=== PATIENT | female | born 1940 | race Asian ===

== ENCOUNTER 2022-08-09 23:10 | Inpatient (IN) | payer OTHER, MEDICAID ==
[~2022-08-09] VITALS: Ht 157.5 cm; Wt 43.1 kg
[2022-08-09 23:20] VITALS: BP 127/85
[2022-08-09] MEDS ORDERED: HALOPERIDOL IM 5 MG/ML VIAL IM ONE (23:20)
[2022-08-09] MEDS ORDERED: LORazepam 2 MG/ML VIAL IM ONE (23:20)
--- NOTE | 2022-08-10 | NUR ---
PT IS SLEEPING. CHEST RISE AND FALL SYMMETRICALLY NOTED. RESPIRATION IS EVEN AND UNLABORED. ALL SAFETY MEASURES IMPLEMENTED. BED IN LOW POSITION. BED WHEELS ON LOCKED AND CALL LIGHT WITHIN REACH. Addendum: 08/11/22 at 0123 by Ariane Boateng RN WRONG TIME
[2022-08-10] MEDS ORDERED: [UNRECOGNIZED DRUG - CODE] PO (00:16)
[2022-08-10] MEDS ORDERED: ROSU20TA1 PO (00:16)
[2022-08-10] MEDS ORDERED: AMLO5TAB PO (00:16)
[2022-08-10] MEDS ORDERED: PIOG1TAB2 PO (00:16)
[2022-08-10] MEDS ORDERED: ESCI10TA PO (00:16)
[2022-08-10] MEDS ORDERED: MIRA25TE PO (00:16)
[2022-08-10] MEDS ORDERED: METF1TAB5 PO (00:16)
[2022-08-10] MEDS ORDERED: DULA0.75 SC (00:16)
--- NOTE | 2022-08-10 00:29 | NUR ---
Patient lying in bed, alert but confused, chest rise and fall symmetrical, no s/s of distress.
--- NOTE | 2022-08-10 00:43 | NUR ---
[address]
--- NOTE | 2022-08-10 01:12 | NUR ---
ASSISTED RN WITH STRAIGHT CATH.
[2022-08-10 01:13] LABS: APPEARANCE,URINE CLOUDY (CLEAR); BILIRUBIN,URINE NEGATIVE (NEGATIVE); BLOOD, URINE 3+ (NEGATIVE); COLOR,URINE YELLOW (YELLOW); LEUKOCYTE ESTERASE ,URINE 2+ (NEGATIVE); NITRITE, URINE POSITIVE (NEGATIVE); PH,URINE 6.5 (5.0-9.0); UGLUCOSE 1+ (NEGATIVE)
[2022-08-10 01:28] LABS: WBC,URINE TOO MANY TO COUNT /HPF (0-5)
[2022-08-10 01:33] LABS: BASOPHILS % (AUTO) 0.5 % (0.0-2.0); EOSINOPHILS % (AUTO) 0.9 % (0.0-4.0); HEMATOCRIT 33.8 % (36-48); HEMOGLOBIN 11.6 g/dL (12.0-16.0); LYMPHOCYTES # (AUTO) 1.3 K/uL (2.5-16.5); LYMPHOCYTES % (AUTO) 28.8 % (20.5-51.1); MEAN CORPUSCULAR HEMOGLOBIN 32 pg (27-31); MEAN CORPUSCULAR HGB CONC 34 g/dL (33-37); MEAN CORPUSCULAR VOLUME 93.5 fL (80-94); MONOCYTES # (AUTO) 0.4 K/uL (0.8-1.0); MONOCYTES % (AUTO) 9.4 % (1.7-9.3); NEUTROPHILS # (AUTO) 2.6 K/uL (1.8-7.7); NEUTROPHILS % (AUTO) 60.4 % (42.2-75.2); PLATELET COUNT (AUTO) 152 K/uL (140-450); RED BLOOD CELL COUNT(AUTO) 3.61 MIL/uL (4.20-5.40); RED CELL DISTRIBUTION WIDTH 13.4 % (11.6-13.7); WHITE BLOOD COUNT (AUTO) 4.4 K/uL (4.8-10.8)
[2022-08-10 01:49] LABS: ALBUMIN 3.7 g/dL (3.4-5.0); ANION GAP 10.6 (8-16); ASPARTATE AMINOTRANSFERASE 19 U/L (15-37); CHLORIDE 105 mmol/L (98-107); CREATININE 0.7 mg/dL (0.6-1.3); GLUCOSE 148 mg/dL (74-106); POTASSIUM 3.6 mmol/L (3.5-5.1); SODIUM SERUM 139 mmol/L (136-145); TOTAL BILIRUBIN 0.5 mg/dL (0.0-1.0); UREA NITROGEN, BLOOD 15 mg/dL (7-18)
--- NOTE | 2022-08-10 02:10 | NUR ---
Patient lying in bed, alert but confused, chest rise and fall symmetrical, no s/s of distress. Addendum: 08/10/22 at 0621 by [email or web address] Patient lying in bed, alert but confused, chest rise and fall symmetrical, no s/s of pain or s/s of distress.
[2022-08-10] MEDS ORDERED: LORazepam 2 MG/ML VIAL IVP PRN ×2 (02:25→18:50)
[2022-08-10] MEDS ORDERED: cefTRIAXone 1,000 MG VIAL ONE (02:37)
--- NOTE | 2022-08-10 04:43 | NUR ---
Patient lying in bed, alert but confused, chest rise and fall symmetrical, no s/s of distress. Addendum: 08/10/22 at 0621 by [email or web address] Patient lying in bed, alert but confused, chest rise and fall symmetrical, no s/s of pain or s/s of distress.
--- NOTE | 2022-08-10 06:20 | NUR ---
Patient lying in bed, alert but confused, chest rise and fall symmetrical, no s/s of pain or s/s of distress.
--- NOTE | 2022-08-10 07:15 | NUR ---
Change of shift report given to AM shift nurse Adze RN. AM shift nurse Adze RN verbalized understanding of report, no further questions.
--- NOTE | 2022-08-10 07:36 | NUR ---
Mary Alice crook in ED - 08/10/22 at 0737 by [email or web address] Change of shift report given to AM shift nurse Belen RN. AM shift nurse Belen RN verbalized understanding of report, no further questions.
[2022-08-10] MEDS ORDERED: ONDANSETRON 4 MG/2 ML VIAL IVP PRN (07:40)
[2022-08-10] MEDS ORDERED: ZOLPIDEM 10 MG TAB PO PRN (07:40)
[2022-08-10] MEDS ORDERED: DOCUSATE SODIUM 100 MG GELCAP PO PRN (07:40)
[2022-08-10] MEDS ORDERED: MORPHINE SULFATE 2 MG/ML SYR IVP PRN (07:40)
[2022-08-10] MEDS ORDERED: POTASSIUM CHLORIDE 10 MEQ TABER PO PRN (07:40)
[2022-08-10] MEDS ORDERED: ACETAMINOPHEN 325 MG TAB PO PRN (07:40)
[2022-08-10] MEDS ORDERED: MAG SULF 2000 MG/WATER PREMIX 50 ML IV PRN (07:40)
[2022-08-10] MEDS ORDERED: DEXTROSE 50% 50 ML SYR IVP PRN (07:45)
--- NOTE | 2022-08-10 08:15 | NUR ---
RECEIVED PT CARE AND REPORT FROM ER NURSE TAMARA. PT ACCOMPANIED BY ER NURSE TO ROOM VIA BED. PT IS RESTING WITH OU CLOSED. NO VISIBLE S/S OF DISTRESS, DISCOMFORT, PAIN OR SOB. PT PLACED IN ROOM WITHOUT INCIDENT. PT IS BENGALI SPEAKING. CALL LIGHT PLACED WITHIN REACH OF PATIENT. TELE MONITOR PLACED. ALL NEEDS MET AT THIS TIME.
--- NOTE | 2022-08-10 08:34 | NUR ---
Patient will be admitted to care of . Admited to tele. Will go to room 120 A. Belongings list completed. Report to Bre HERNANDEZ.
[2022-08-10] MEDS ORDERED: MEMANTINE 10 MG TAB PO SCH (09:00)
--- NOTE | 2022-08-10 09:48 | NUR ---
PATIENT HAS BEEN SCREENED AND CATEGORIZED MODERATE NUTRITION RISK. PATIENT WILL BE SEEN WITHIN 3-5 DAYS OF ADMISSION. REVIEWED BY EDWIN MISHRA RD Addendum: 08/10/22 at [address] PATIENT HAS BEEN RE-SCREENED AND CATEGORIZED HIGH NUTRITION RISK D/T BMI = 17.4 KG/M2. PATIENT WILL BE SEEN WITHIN 1-2 DAYS OF ADMISSION. REVIEWED BY EDWIN MISHRA RD
[2022-08-10] MEDS: amLODIPine 5 MG TAB PO SCH (09:58)
[2022-08-10] MEDS: ESCITALOPRAM 20 MG TAB PO SCH (09:59)
--- NOTE | 2022-08-10 10:47 | NUR ---
PT ADMISSION COMPLETE WITH ASSISTANCE FROM DAUGHTER IN LAW WESLEY PETER. FAMILY WAS ABLE TO ANSWER QUESTIONS AND TRANSLATE FOR PATIENT D/T LANGUAGE BARRIER. PATIENT SPEAKS THAI.
[2022-08-10 12:00] VITALS: BP 110/59
[2022-08-10] MEDS: BLOOD GLUCOSE MONITORING 1 DEV DEV FS SCH ×3 (12:02→21:15)
--- NOTE | 2022-08-10 12:53 | NUR ---
CALLED AND SPOKE WITH DR. ANDERSON FOR PATIENT'S TELE PSYCH CONSULT. GAVE REPORT ON PATIENT HISTORY, CONDITION AND REASON FOR ADMISSION. STATED HE WILL COMPLETE TELE CONSULT AT A LATER TIME TODAY.
[2022-08-10 16:00] VITALS: BP 134/75
--- NOTE | 2022-08-10 16:45 | NUR ---
08/10/22 RD INITIAL ASSESSMENT COMPLETED PLEASE REFER TO NUTRITION ASSESSMENT UNDER CARE ACTIVITY FOR ESTIMATED NUTRITIONAL NEEDS. 1. RECOMMEND ADDING CCHO 60 GM TO MECHANICAL SOFT DIET TOLERATED 2. RECOMMEND GLUCERNA 1/DAY -PROVIDES 220 KCAL AND [address] TO FOLLOW-UP 3-5 DAYS, MODERATE RISK REVIEWED BY EDWIN MISHRA RD
--- NOTE | 2022-08-10 18:31 | NUR ---
PT IS RESTING IN BED SEMI FOWLERS WITH OU CLOSED. NO VISIBLE S/S OF DISTRESS, DISCOMFORT, PAIN OR SOB. CALL LIGHT IS WITHIN REACH, ALL NEEDS MET AT THIS TIME. WILL ENDORSE TO NOC SHIFT.
--- NOTE | 2022-08-10 18:48 | NUR ---
TEXTED DR. SANCHEZ TO REQUEST MEDICATION FOR AGITATION. PT IS NOT AGITATED AT THIS MOMENT BUT HAS HISTORY OF AGITATION AND WAS GIVEN SOME IN OUR ER. FAMILY IS CONCERNED THAT PATIENT WILL HAVE ANOTHER OUTBURST AND ARE REQUESTING ROOM CHANGE AND MEDICATIONS. NO ROOMS TO CHANGE PATIENT TO AT THIS TIME.
--- NOTE | 2022-08-10 19:30 | NUR ---
RECEIVED PT FROM MORNING SHIFT NURSE. PT IS AOX1, POLISH SPEAKING AND ON BED REST. PT IS ON ROOM AIR AND ON [facility] SOFT DIET. PT HAS IV ON RIGHT AC GAUGE 20, SALINE LOCK. PT SKIN IS INTACT. PT HAS NO S/S OF RESPIRATORY DISTRESS NOTED. ALL SAFETY MEASURES IMPLEMENTED. BED IN LOW POSITION. BED WHEELS ON LOCKED AND CALL LIGHT WITHIN REACH.
[2022-08-10 20:00] VITALS: BP 123/58
[2022-08-10] MEDS: LORazepam 2 MG/ML VIAL IVP PRN (20:56)
--- NOTE | 2022-08-10 20:56 | NUR ---
SCHEDULED AND PRESCRIBED MEDICATION WAS GIVEN TO PT. ATIVAN WAS ALSO GIVEN DUE TO PT'S AGITATION. ALL SAFETY MEASURES IMPLEMENTED. BED IN LOW POSITION. BED WHEELS ON LOCKED AND CALL LIGHT WITHIN REACH.
[2022-08-10] MEDS: INSULIN LISPRO SLIDING SCALE 100 UNITS/ML VIAL SUBQ PRN (21:16)
--- NOTE | 2022-08-10 21:16 | NUR ---
PT BLOOD GLUCOSE IS 176. HUMALOG INSULIN 2 UNITS WAS GIVEN TO PT PER MD ORDER. ALL SAFETY MEASURES IMPLEMENTED. BED IN LOW POSITION. BED WHEELS ON LOCKED AND CALL LIGHT WITHIN REACH.
[2022-08-11] VITALS: BP 133/60
--- NOTE | 2022-08-11 | NUR ---
PT IS SLEEPING. CHEST RISE AND FALL SYMMETRICALLY NOTED. RESPIRATION IS EVEN AND UNLABORED. ALL SAFETY MEASURES IMPLEMENTED. BED IN LOW POSITION. BED WHEELS ON LOCKED AND CALL LIGHT WITHIN REACH.
--- NOTE | 2022-08-11 02:00 | NUR ---
CHECKED THE PT, STILL SLEEPING. CHEST RISE AND FALL SYMMETRICALLY NOTED. RESPIRATION IS EVEN AND UNLABORED. ALL SAFETY MEASURES IMPLEMENTED. BED IN LOW POSITION. BED WHEELS ON LOCKED AND CALL LIGHT WITHIN REACH.
[2022-08-11 04:00] VITALS: BP 155/69
--- NOTE | 2022-08-11 04:00 | NUR ---
MORNING CARE WAS DONE TO PT. CHANGED LINENS, CHUCKS AND GOWN. ALL SAFETY MEASURES IMPLEMENTED. BED IN LOW POSITION. BED WHEELS ON LOCKED AND CALL LIGHT WITHIN REACH.
[2022-08-11 05:43] LABS: BASOPHILS % (AUTO) 0.6 % (0.0-2.0); EOSINOPHILS # (AUTO) 0.1 K/uL (0-0.4); EOSINOPHILS % (AUTO) 1.6 % (0.0-4.0); HEMATOCRIT 34.8 % (36-48); HEMOGLOBIN 11.9 g/dL (12.0-16.0); LYMPHOCYTES # (AUTO) 1.6 K/uL (2.5-16.5); LYMPHOCYTES % (AUTO) 31.4 % (20.5-51.1); MEAN CORPUSCULAR HEMOGLOBIN 32 pg (27-31); MEAN CORPUSCULAR HGB CONC 34 g/dL (33-37); MEAN CORPUSCULAR VOLUME 93.2 fL (80-94); MONOCYTES # (AUTO) 0.5 K/uL (0.8-1.0); MONOCYTES % (AUTO) 9.6 % (1.7-9.3); NEUTROPHILS # (AUTO) 2.8 K/uL (1.8-7.7); NEUTROPHILS % (AUTO) 56.8 % (42.2-75.2); PLATELET COUNT (AUTO) 173 K/uL (140-450); RED BLOOD CELL COUNT(AUTO) 3.73 MIL/uL (4.20-5.40)
[2022-08-11 06:16] LABS: ANION GAP 11.9 (8-16); CARBON DIOXIDE 27.7 mmol/L (21-32); CHLORIDE 104 mmol/L (98-107); CREATININE 0.7 mg/dL (0.6-1.3); GLUCOSE 119 mg/dL (74-106); POTASSIUM 3.6 mmol/L (3.5-5.1); SODIUM SERUM 140 mmol/L (136-145); UREA NITROGEN, BLOOD 15 mg/dL (7-18)
[2022-08-11] MEDS: BLOOD GLUCOSE MONITORING 1 DEV DEV FS SCH ×4 (06:32→20:44)
[2022-08-11] MEDS: INSULIN LISPRO SLIDING SCALE 100 UNITS/ML VIAL SUBQ PRN ×3 (06:33→20:42)
--- NOTE | 2022-08-11 06:33 | NUR ---
PT BLOOD SUGAR IS 202. HUMALOG INSULIN 4 UNITS WAS GIVEN TO PT. ALL SAFETY MEASURES IMPLEMENTED. BED IN LOW POSITION. BED WHEELS ON LOCKED AND CALL LIGHT WITHIN REACH. Addendum: 08/11/22 at 705 by Ariane Boateng RN WRONG TIME. Addendum: 08/11/22 at 705 by Ariane Boateng RN WRONG PT
--- NOTE | 2022-08-11 06:34 | NUR ---
PT BLOOD SUGAR IS 113. NO HUMALOG INSULIN COVERAGE NEEDED. ALL SAFETY MEASURES IMPLEMENTED. BED IN LOW POSITION. BED WHEELS ON LOCKED AND CALL LIGHT WITHIN REACH.
--- NOTE | 2022-08-11 07:10 | NUR ---
PT IS STABLE. ENDORSED PT TO THE MORNING SHIFT NURSE FOR CONTINUITY OF CARE.
--- NOTE | 2022-08-11 07:30 | NUR ---
RECEIVED PT CARE AND REPORT FROM ANDREW HERNANDEZ. PT IS RESTING IN BED SEMI FOWLERS WITH OU CLOSED. NO VISIBLE S/S OF DISTRESS, DISCOMFORT, PAIN OR SOB. INFORMED BY NOC RN THAT PATIENT WAS GIVEN ATIVAN PRN FOR AGITATION AT 2055. WILL CONTINUE TO MONITOR PATIENT BEHAVIOR. CALL LIGHT IS WITHIN REACH, ALL NEEDS MET AT THIS TIME.
[2022-08-11 08:00] VITALS: BP 150/70
[2022-08-11] MEDS: ESCITALOPRAM 20 MG TAB PO SCH (10:03)
[2022-08-11] MEDS: amLODIPine 5 MG TAB PO SCH (10:04)
[2022-08-11 12:00] VITALS: BP 128/60
--- NOTE | 2022-08-11 12:45 | NUR ---
FAMILY (DANGELO) IS REQUESTING THAT NORVASC BE CHANGED TO DIFFERENT BP MEDICATION D/T PREVIOUS ADVERSE REACTION TO MEDICATION. THEY STATED THAT PATIENT EXPERIENCED BILAT LOWER EXTREMITY SWELLING. TEXTED DR. SANCHEZ TO INFORM. AWAITING ORDERS.
--- NOTE | 2022-08-11 15:06 | NUR ---
TEXTED DR. AU TO RECEIVE UPDATE ABOUT PATIENT'S TELE PSYCH CONSULT. AWAITING ANSWER.
[2022-08-11 16:00] VITALS: BP 128/61
--- NOTE | 2022-08-11 16:24 | NUR ---
DR. AU STATED THAT PATIENT WILL BE SEEN TOMORROW BY DR. YAP FOR TELE PSYCH CONSULT.
--- NOTE | 2022-08-11 18:36 | NUR ---
PT IS RESTING IN BED SEMI FOWLERS WITH OU CLOSED. NO VISIBLE S/S OF DISTRESS, DISCOMFORT, PAIN OR SOB. CALL LIGHT IS WITHIN REACH. NO BEHAVIORAL OUTBURSTS THROUGHOUT SHIFT. ALL NEEDS HAVE BEEN MET AT THIS TIME. WILL ENDORSE TO NOC SHIFT NURSE.
[2022-08-11 20:00] VITALS: BP 130/70
[2022-08-12] VITALS: BP 117/61
[2022-08-12 04:00] VITALS: BP 146/63
[2022-08-12 05:37] LABS: BASOPHILS % (AUTO) 0.5 % (0.0-2.0); EOSINOPHILS # (AUTO) 0.1 K/uL (0-0.4); EOSINOPHILS % (AUTO) 1.4 % (0.0-4.0); HEMATOCRIT 35.3 % (36-48); HEMOGLOBIN 12.1 g/dL (12.0-16.0); LYMPHOCYTES # (AUTO) 1.5 K/uL (2.5-16.5); LYMPHOCYTES % (AUTO) 33.6 % (20.5-51.1); MEAN CORPUSCULAR HEMOGLOBIN 32 pg (27-31); MEAN CORPUSCULAR HGB CONC 34 g/dL (33-37); MEAN CORPUSCULAR VOLUME 93.1 fL (80-94); MONOCYTES # (AUTO) 0.5 K/uL (0.8-1.0); MONOCYTES % (AUTO) 10.3 % (1.7-9.3); NEUTROPHILS # (AUTO) 2.5 K/uL (1.8-7.7); NEUTROPHILS % (AUTO) 54.2 % (42.2-75.2); PLATELET COUNT (AUTO) 175 K/uL (140-450); RED CELL DISTRIBUTION WIDTH 13.2 % (11.6-13.7); WHITE BLOOD COUNT (AUTO) 4.6 K/uL (4.8-10.8)
[2022-08-12 06:13] LABS: ANION GAP 8.6 (8-16); CARBON DIOXIDE 30.1 mmol/L (21-32); CHLORIDE 105 mmol/L (98-107); CREATININE 0.8 mg/dL (0.6-1.3); GLUCOSE 139 mg/dL (74-106); POTASSIUM 4.7 mmol/L (3.5-5.1); SODIUM SERUM 139 mmol/L (136-145); UREA NITROGEN, BLOOD 15 mg/dL (7-18)
[2022-08-12] MEDS: BLOOD GLUCOSE MONITORING 1 DEV DEV FS SCH ×4 (06:53→21:00)
--- NOTE | 2022-08-12 06:56 | NUR ---
Pt alert and verbally responsive, denies pain. No agitation or restlessness noted . v/s wnl for patient continue with plan of care
--- NOTE | 2022-08-12 07:30 | NUR ---
RECEIVED BEDSIDE REPORT FROM [facility]. PT SPEAKS ICELANDIC ADEQUATELY. REFUSES TO ANSWER QUESTIONS AT TIMES. ROOM AIR. RESPIRATIONS EVEN AND UNLABORED. SR ON MONITOR. DENIES PAIN OR OTHER DISCOMFORT. STANDARD PRECAUTION. BED LOCKED AND IN LOWEST POSITION.
[2022-08-12 08:00] VITALS: BP 126/72
[2022-08-12] MEDS: lisinopriL 5 MG TAB PO SCH ×2 (09:00→09:51)
[2022-08-12] MEDS: ESCITALOPRAM 20 MG TAB PO SCH ×2 (09:00→09:51)
[2022-08-12] MEDS ORDERED: CEFT1VIA7 IJ (09:15)
[2022-08-12] MEDS ORDERED: LISI5TAB24 PO (09:15)
[2022-08-12] MEDS ORDERED: MERO1PIG IV (10:29)
[2022-08-12] MEDS: INSULIN LISPRO SLIDING SCALE 100 UNITS/ML VIAL SUBQ PRN ×2 (11:42→22:14)
[2022-08-12 12:00] VITALS: BP 120/56
--- NOTE | 2022-08-12 14:00 | NUR ---
RECEIVED PHONE CALL FROM WESLEY PETER WHO STATED SHE WOULD LIKE THE PT TRANSFERRED TO [facility]. UPDATED ON POC. ENDORSED TO CASE MANAGEMENT.
[2022-08-12 16:00] VITALS: BP 110/64
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
--- NOTE | 2022-08-12 19:16 | NUR ---
ENDORSED BEDSIDE REPORT TO PEPE, NETWORKING SPECIALIST DREDGE PIPEMAN, FOR CONTINUITY OF CARE
--- NOTE | 2022-08-12 20:37 | NUR ---
pT ALERT , AWAKE AND VERBALLY RESPONSIVE , ABLE TO VERBALIZE NEEDS IN [place], REFUSED VITAL ASSESS AT 1999,PULLED OUT IV SITE FOR ATB ADMINISTRATION. OFFERED TO REINSERT , PT REFUSED X3, FAMILY DEVELOPMENT EXTENSION SPECIALIST, DR VEGA, NOTIFIED, AWARE. AWARE OF RISK AND BENEFITS, cONTINUE TO MONITOR, WILL TRY AGAIN
[2022-08-12 22:00] VITALS: BP 115/68
--- NOTE | 2022-08-12 22:31 | NUR ---
PT AGREED TO HAVE IV REINSERTED AND ATB ADMINISTERED ORDERED. CONTINUE TO MONITOR bG CHECKED AND V/S ASSESSED .
[2022-08-13] VITALS: BP 111/58
[2022-08-13] MEDS ORDERED: Z-GUARD PASTE TP PRN (01:20)
[2022-08-13 04:00] VITALS: BP 122/64
[2022-08-13] MEDS ORDERED: PIPERACILLIN/TAZOBACTAM 3.375 GM VIAL IV ONE (05:46)
[2022-08-13] MEDS: PIPERACILLIN/TAZOBACTAM 2.25 GM in DEXTROSE 5% 50 ML IV SCH ×4 (06:00→23:34)
[2022-08-13] MEDS: BLOOD GLUCOSE MONITORING 1 DEV DEV FS SCH ×4 (06:26→21:00)
[2022-08-13 07:01] LABS: BASOPHILS % (AUTO) 0.4 % (0.0-2.0); EOSINOPHILS # (AUTO) 0.1 K/uL (0-0.4); EOSINOPHILS % (AUTO) 1.5 % (0.0-4.0); HEMATOCRIT 34.5 % (36-48); HEMOGLOBIN 11.8 g/dL (12.0-16.0); LYMPHOCYTES # (AUTO) 1.4 K/uL (2.5-16.5); LYMPHOCYTES % (AUTO) 30.5 % (20.5-51.1); MEAN CORPUSCULAR HEMOGLOBIN 32 pg (27-31); MEAN CORPUSCULAR HGB CONC 34 g/dL (33-37); MEAN CORPUSCULAR VOLUME 94.2 fL (80-94); MONOCYTES # (AUTO) 0.5 K/uL (0.8-1.0); MONOCYTES % (AUTO) 10.2 % (1.7-9.3); NEUTROPHILS # (AUTO) 2.6 K/uL (1.8-7.7); NEUTROPHILS % (AUTO) 57.4 % (42.2-75.2); PLATELET COUNT (AUTO) 185 K/uL (140-450); RED BLOOD CELL COUNT(AUTO) 3.66 MIL/uL (4.20-5.40); RED CELL DISTRIBUTION WIDTH 13.4 % (11.6-13.7); WHITE BLOOD COUNT (AUTO) 4.6 K/uL (4.8-10.8)
--- NOTE | 2022-08-13 07:15 | NUR ---
ASSUMED CONTINUITY OF CARE. INITIAL ASSESSMENT DONE. RE-ORIENTED TO EVENTS AND SURROUNDINGS. NON-COMPLIANT TO SAFETY. FALL PRECAUTION APPLIED. CALL LIGHT WITHIN REACH.
[2022-08-13 08:00] VITALS: BP 125/58
[2022-08-13] MEDS: ESCITALOPRAM 20 MG TAB PO SCH (09:24)
[2022-08-13] MEDS: lisinopriL 5 MG TAB PO SCH (09:24)
[2022-08-13 09:34] LABS: ANION GAP 10.5 (8-16); CARBON DIOXIDE 27.1 mmol/L (21-32); CHLORIDE 104 mmol/L (98-107); CREATININE 0.6 mg/dL (0.6-1.3); GLUCOSE 109 mg/dL (74-106); POTASSIUM 3.6 mmol/L (3.5-5.1); SODIUM SERUM 138 mmol/L (136-145); UREA NITROGEN, BLOOD 17 mg/dL (7-18)
--- NOTE | 2022-08-13 11:00 | NUR ---
PT. CONFUSED AND YELLING. TRIED TO PULLED IV ON RIGHT FOREARM AND TRIED TO GET OUT FROM BED. WILL MONITOR FREQUENTLY TO PREVENT INJURY. CALL LIGHT WITHIN REACH.
[2022-08-13] MEDS: LORazepam 2 MG/ML VIAL IVP PRN (11:30)
--- NOTE | 2022-08-13 11:30 | NUR ---
NON-COMPLIANT TO SAFETY. STILL TRYING TO PULLED OUT IV ACCESS AND TRIED TO GET OUT FROM BED. MEDICATED PER MD ORDER FOR AGITATION AND GIVEN BY RN.
[2022-08-13 12:00] VITALS: BP 143/58
[2022-08-13] MEDS: INSULIN LISPRO SLIDING SCALE 100 UNITS/ML VIAL SUBQ PRN ×2 (12:29→22:28)
[2022-08-13 16:00] VITALS: BP 126/64
[2022-08-13] MEDS: Z-GUARD PASTE TP SCH (16:31)
--- NOTE | 2022-08-13 19:22 | NUR ---
REPORT GIVEN TO JOSEFINA WALTER. IN STABLE CONDITION.
--- NOTE | 2022-08-13 19:30 | NUR ---
RECEIVED PATIENT FROM AM NURSE FOR CONTINUITY OF CARE. PT IS STABLE
[2022-08-13 20:00] VITALS: BP 129/62
[2022-08-14] MEDS: Z-GUARD PASTE TP SCH ×2 (00:56→12:14)
--- NOTE | 2022-08-14 02:00 | NUR ---
PATIENT ASLEEP, ALL SAFETY MEASURES IN PLACE, CALL LIGHT WITHIN EASY REACH
[2022-08-14 04:00] VITALS: BP 123/57
[2022-08-14] MEDS: PIPERACILLIN/TAZOBACTAM 2.25 GM in DEXTROSE 5% 50 ML IV SCH ×4 (05:45→23:40)
[2022-08-14 06:24] LABS: BASOPHILS % (AUTO) 0.4 % (0.0-2.0); EOSINOPHILS # (AUTO) 0.1 K/uL (0-0.4); EOSINOPHILS % (AUTO) 1.1 % (0.0-4.0); HEMATOCRIT 35.5 % (36-48); HEMOGLOBIN 12.3 g/dL (12.0-16.0); LYMPHOCYTES # (AUTO) 1.1 K/uL (2.5-16.5); LYMPHOCYTES % (AUTO) 19.6 % (20.5-51.1); MEAN CORPUSCULAR HEMOGLOBIN 32 pg (27-31); MEAN CORPUSCULAR HGB CONC 35 g/dL (33-37); MONOCYTES # (AUTO) 0.4 K/uL (0.8-1.0); MONOCYTES % (AUTO) 6.8 % (1.7-9.3); NEUTROPHILS % (AUTO) 72.1 % (42.2-75.2); PLATELET COUNT (AUTO) 193 K/uL (140-450); RED BLOOD CELL COUNT(AUTO) 3.82 MIL/uL (4.20-5.40); RED CELL DISTRIBUTION WIDTH 13.2 % (11.6-13.7); WHITE BLOOD COUNT (AUTO) 5.6 K/uL (4.8-10.8)
[2022-08-14 06:30] LABS: ANION GAP 9.7 (8-16); CARBON DIOXIDE 29.8 mmol/L (21-32); CHLORIDE 102 mmol/L (98-107); CREATININE 0.8 mg/dL (0.6-1.3); GLUCOSE 156 mg/dL (74-106); POTASSIUM 4.5 mmol/L (3.5-5.1); SODIUM SERUM 137 mmol/L (136-145); UREA NITROGEN, BLOOD 11 mg/dL (7-18)
[2022-08-14] MEDS: INSULIN LISPRO SLIDING SCALE 100 UNITS/ML VIAL SUBQ PRN ×3 (06:34→20:46)
[2022-08-14] MEDS: BLOOD GLUCOSE MONITORING 1 DEV DEV FS SCH ×4 (06:36→20:47)
[2022-08-14 08:00] VITALS: BP 102/49
[2022-08-14] MEDS: ESCITALOPRAM 20 MG TAB PO SCH (09:09)
[2022-08-14] MEDS: lisinopriL 5 MG TAB PO SCH (09:10)
[2022-08-14 12:00] VITALS: BP 103/47
[2022-08-14 16:00] VITALS: BP 104/50
--- NOTE | 2022-08-14 19:10 | NUR ---
ENDORSE PATIENT IN STABLE CONDITION TO PM SHIFT NURSE WHILE PATIENT REST IN BED; R. FOREARM PIV SALINE LOCK PATENT
--- NOTE | 2022-08-14 19:15 | NUR ---
RECEIVED PT FROM AM NURSE FOR CONTINUITY OF CARE.PT IS STABLE
[2022-08-14 20:00] VITALS: BP 101/57
[2022-08-15] VITALS: BP 108/60
[2022-08-15] MEDS: Z-GUARD PASTE TP SCH ×2 (01:06→13:00)
--- NOTE | 2022-08-15 01:10 | NUR ---
PATIENT ASLEEP, ALL SAFETY MEASURES IN PLACE, NO DISTRESS NOTED
[2022-08-15 04:00] VITALS: BP 108/60
[2022-08-15] MEDS: PIPERACILLIN/TAZOBACTAM 2.25 GM in DEXTROSE 5% 50 ML IV SCH ×2 (05:53→12:23)
[2022-08-15 06:00] LABS: BASOPHILS % (AUTO) 0.3 % (0.0-2.0); EOSINOPHILS % (AUTO) 0.8 % (0.0-4.0); HEMATOCRIT 33.8 % (36-48); HEMOGLOBIN 11.7 g/dL (12.0-16.0); LYMPHOCYTES # (AUTO) 1.4 K/uL (2.5-16.5); LYMPHOCYTES % (AUTO) 26.2 % (20.5-51.1); MEAN CORPUSCULAR HEMOGLOBIN 32 pg (27-31); MEAN CORPUSCULAR HGB CONC 35 g/dL (33-37); MEAN CORPUSCULAR VOLUME 93.9 fL (80-94); MONOCYTES # (AUTO) 0.4 K/uL (0.8-1.0); MONOCYTES % (AUTO) 7.7 % (1.7-9.3); NEUTROPHILS # (AUTO) 3.5 K/uL (1.8-7.7); PLATELET COUNT (AUTO) 193 K/uL (140-450); RED CELL DISTRIBUTION WIDTH 13.3 % (11.6-13.7); WHITE BLOOD COUNT (AUTO) 5.4 K/uL (4.8-10.8)
[2022-08-15 06:16] LABS: ANION GAP 8.9 (8-16); CARBON DIOXIDE 32.3 mmol/L (21-32); CHLORIDE 102 mmol/L (98-107); CREATININE 0.8 mg/dL (0.6-1.3); GLUCOSE 155 mg/dL (74-106); POTASSIUM 4.2 mmol/L (3.5-5.1); SODIUM SERUM 139 mmol/L (136-145); UREA NITROGEN, BLOOD 13 mg/dL (7-18)
[2022-08-15] MEDS: BLOOD GLUCOSE MONITORING 1 DEV DEV FS SCH ×3 (06:44→17:05)
--- NOTE | 2022-08-15 07:15 | NUR ---
ENDORSED PT TO AM NURSE FOR CONTINUITY OF CARE.PT IS STABLE
[2022-08-15 08:00] VITALS: BP 125/59
[2022-08-15] MEDS: ESCITALOPRAM 20 MG TAB PO SCH (09:15)
[2022-08-15] MEDS: lisinopriL 5 MG TAB PO SCH (09:17)
[2022-08-15 12:00] VITALS: BP 110/50
[2022-08-15] MEDS: INSULIN LISPRO SLIDING SCALE 100 UNITS/ML VIAL SUBQ PRN (12:23)
--- NOTE | 2022-08-15 14:00 | NUR ---
08/15/22 RD FOLLOW UP COMPLETED PLEASE REFER TO NUTRITION ASSESSMENT UNDER CARE ACTIVITY FOR ESTIMATED NUTRITIONAL NEEDS. 1. CONTINUE CCHO 60 GM, MECHANICAL SOFT, GLUCERNA 1/DAY TOLERATED - GLUCERNA 1/DAY PROVIDES 220 KCAL AND 10 GM PROTEIN DAILY 2. MONITOR GI SYMPTOMS, PO INTAKE, AND NUTRITION RELATED LAB VALUES 3. RD TO FOLLOW-UP 7 DAYS, LOW RISK REVIEWED BY EDWIN MISHRA RD
[2022-08-15 14:40] VITALS: BP 110/50
--- NOTE | 2022-08-15 16:58 | NUR ---
PARKER IS HERE TO PRODUCTION SUPPORT MANAGER PATIENT FOR [facility] ([phone]), REPORT GIVE EARLY TO YASHIRA; FAMILY INFORMED THE PATIENT'S TRANSFER; WRIST BAND & TEL MONITOR REMOVED, PATIENT IS IN STABLE CONDITION
== END 2022-08-15 17:05 | DRG 71 ==
LOC: MED 23:10 → MTU 08-10 02:26
PROVIDERS: ADMIT Family Medicine; ATTEND Family Medicine
DX: G93.41 Metabolic encephalopathy (principal); N39.0 Urinary tract infection, site not specified; I10 Essential (primary) hypertension; F03.90 Unspecified dementia, unspecified severity, without behavioral disturbance, psychotic disturbance, mood disturbance, and anxiety; E78.5 Hyperlipidemia, unspecified; E11.9 Type 2 diabetes mellitus without complications; F32.A Depression, unspecified; D64.9 Anemia, unspecified; Z20.822 Contact with and (suspected) exposure to COVID-19; B96.20 Unspecified Escherichia coli [E. coli] as the cause of diseases classified elsewhere; Z79.899 Other long term (current) drug therapy
CPT/HCPCS: 36415; 70450; 80048; 80053; 81001; 82948; 83605; 83735; 85025; 87040; 87081; 87086; 96365; 96372; 99285; J0696; J1630; J1815; J2060; J2543; J7060

== ENCOUNTER 2022-08-21 19:43 | Emergency (ER) | payer OTHER, MEDICAID ==
[~2022-08-21] VITALS: Ht 157.5 cm; Wt 59.0 kg
[~2022-08-21 19:43] MED LIST: DULA0.75 SC; ESCI10TA PO; LISI5TAB24 PO; MERO1PIG IV; METF1TAB5 PO; MIRA25TE PO
[2022-08-21 19:45] VITALS: BP 156/68
--- NOTE | 2022-08-21 20:06 | NUR ---
Dr. Wan examining patient.
[2022-08-21] MEDS ORDERED: NACL 0.9% 1,000 ML IV SCH (20:15)
[2022-08-21] MEDS ORDERED: INSULIN REGULAR, HUMAN 100 UNIT/ML VIAL SUBQ ONE (20:20)
[2022-08-21 20:35] LABS: BASOPHILS % (AUTO) 0.7 % (0.0-2.0); EOSINOPHILS % (AUTO) 0.8 % (0.0-4.0); HEMATOCRIT 32.8 % (36-48); HEMOGLOBIN 11.3 g/dL (12.0-16.0); LYMPHOCYTES # (AUTO) 1.1 K/uL (2.5-16.5); LYMPHOCYTES % (AUTO) 26.2 % (20.5-51.1); MEAN CORPUSCULAR HEMOGLOBIN 33 pg (27-31); MEAN CORPUSCULAR HGB CONC 34 g/dL (33-37); MEAN CORPUSCULAR VOLUME 94.8 fL (80-94); MONOCYTES # (AUTO) 0.3 K/uL (0.8-1.0); NEUTROPHILS # (AUTO) 2.8 K/uL (1.8-7.7); NEUTROPHILS % (AUTO) 64.3 % (42.2-75.2); PLATELET COUNT (AUTO) 182 K/uL (140-450); RED BLOOD CELL COUNT(AUTO) 3.46 MIL/uL (4.20-5.40); RED CELL DISTRIBUTION WIDTH 13.7 % (11.6-13.7); WHITE BLOOD COUNT (AUTO) 4.4 K/uL (4.8-10.8)
[2022-08-21 20:54] LABS: ALBUMIN 3.7 g/dL (3.4-5.0); ANION GAP 11.2 (8-16); ASPARTATE AMINOTRANSFERASE 47 U/L (15-37); CARBON DIOXIDE 27.1 mmol/L (21-32); CHLORIDE 101 mmol/L (98-107); CREATININE 0.8 mg/dL (0.6-1.3); GLUCOSE 338 mg/dL (74-106); POTASSIUM 4.3 mmol/L (3.5-5.1); SODIUM SERUM 135 mmol/L (136-145); TOTAL BILIRUBIN 0.4 mg/dL (0.0-1.0); UREA NITROGEN, BLOOD 24 mg/dL (7-18)
--- NOTE | 2022-08-21 21:17 | NUR ---
PT BIBA BLS. TAKEN TO BED 9
--- NOTE | 2022-08-21 21:18 | NUR ---
X-Ray at bedside.
[2022-08-21] MEDS ORDERED: cefTRIAXone 1,000 MG VIAL ONE (21:34)
--- NOTE | 2022-08-21 22:24 | NUR ---
Dr. Ortiz examining patient.
[2022-08-21 23:04] LABS: APPEARANCE,URINE CLEAR (CLEAR); BILIRUBIN,URINE NEGATIVE (NEGATIVE); BLOOD, URINE TRACE-I (NEGATIVE); COLOR,URINE YELLOW (YELLOW); LEUKOCYTE ESTERASE ,URINE NEGATIVE (NEGATIVE); NITRITE, URINE NEGATIVE (NEGATIVE); UGLUCOSE 3+ (NEGATIVE)
[2022-08-21 23:11] LABS: RBC,URINE 0-5 /HPF (0-5); WBC,URINE 0-5 /HPF (0-5)
[2022-08-21 23:13] LABS: BARBITURATE, URINE NEGATIVE ng/ml (NEG <=200); BENZODIAZEPINE, URINE NEGATIVE ng/mL (NEG <=200); CANNABINOID, URINE NEGATIVE ng/mL (NEG <=50); COCAINE, URINE NEGATIVE ng/mL (NEG <=300); OPIATE, URINE NEGATIVE ng/mL (NEG <=2000); PHENCYCLIDINE SCREEN,URINE NEGATIVE ng/mL (NEG <=25)
--- NOTE | 2022-08-22 | NUR ---
Pt resting in bed, eyes closed. NAD
--- NOTE | 2022-08-22 03:20 | NUR ---
Pt's linen and diaper changed. Pt ambulated to restroom with stedy gait.
--- NOTE | 2022-08-22 06:21 | NUR ---
Pt resting in bed, eyes closed. NAD
--- NOTE | 2022-08-22 08:00 | NUR ---
ASSUMED PATIENT CARE, AWAITING TRANSPORT FOR RETURN BACK TO [facility].
--- NOTE | 2022-08-22 08:29 | NUR ---
ASSISTED TO BATHROOM, COMFORT NEEDS ATTENDED TO. OFFERED FOOD BUT PATIENT ONLY WANTS WATER.
--- NOTE | 2022-08-22 12:45 | NUR ---
CALLED [facility] TO GIVE REPORT TO YASHIRA AND INFORM THEM THAT PT WILL BE COMING BACK.
--- NOTE | 2022-08-22 13:11 | NUR ---
TRANSPORTED [facility] [place] [facility] PATIENT STABLE, NO DISTRESS.
[2022-08-22 13:12] VITALS: BP 161/61
== END 2022-08-22 13:12 ==
LOC: MED 19:43
DX: R41.82 Altered mental status, unspecified (principal); E11.65 Type 2 diabetes mellitus with hyperglycemia; R74.02 Elevation of levels of lactic acid dehydrogenase [LDH]; I10 Essential (primary) hypertension; F03.90 Unspecified dementia, unspecified severity, without behavioral disturbance, psychotic disturbance, mood disturbance, and anxiety; Z79.4 Long term (current) use of insulin; Z79.899 Other long term (current) drug therapy
CPT/HCPCS: 36415; 71045; 80053; 80305; 81001; 82550; 82553; 83605; 84484; 85025; 87040; 87086; 93005; 96365; 96366; 96372; 99285; J0696; J1815; J7030; Q0092

== ENCOUNTER 2022-08-22 15:00 | Emergency (ER) | payer OTHER, MEDICAID ==
[~2022-08-22] VITALS: Ht 149.9 cm; Wt 45.4 kg
[2022-08-22 15:08] VITALS: BP 136/62
--- NOTE | 2022-08-22 15:20 | NUR ---
ASSUMED PATIENT CARE, NURSING ASSESSMENT COMPLETED.
--- NOTE | 2022-08-22 16:14 | NUR ---
RECEIVED CALL FROM ANDRAE JONES, EXTRUDER OPERATOR HORIZONTAL FROM [facility], PER ANDRAE PATIENT'S DAUGHTER IN LAW WILL COME AND PICK HER UP BETWEEN 6 TO 7 PM TODAAY.
--- NOTE | 2022-08-22 17:18 | NUR ---
SPOKE TO PATIENT'S SON, JAZMIN, COORDINATED LEAN MANUFACTURING LEADER TIME FOR HER MOTHER. FAMILY PLANS TO TAKE HER TO A FACILITY CLOSER TO ALL THE FAMILY MEMBERS. INFORMED ANDRAE FROM [facility].
--- NOTE | 2022-08-22 18:45 | NUR ---
FAMILY'S CONTACT INFO JAZMIN [phone].
[2022-08-22 19:20] VITALS: BP 129/56
--- NOTE | 2022-08-22 19:20 | NUR ---
Patient discharged with v/s stable. Written and verbal after care instructions given and explained. Daughter vebralized understanding. Ambulatory with steady gait accompanied by daughter. All questions addressed prior to discharge. Advised to follow up with PMD.
== END 2022-08-22 19:20 | disposition home or self-care (01) ==
LOC: MED 15:00
DX: F03.90 Unspecified dementia, unspecified severity, without behavioral disturbance, psychotic disturbance, mood disturbance, and anxiety (principal); E11.9 Type 2 diabetes mellitus without complications; I10 Essential (primary) hypertension; Z79.899 Other long term (current) drug therapy
CPT/HCPCS: 99283